=== PATIENT | male | born 1955 | race African-American/Black ===

== ENCOUNTER 2018-06-16 19:56 | Emergency (ER) | payer OTHER ==
[2018-06-16 20:31] LABS: Absolute Lymphocytes (CBC) 2.7 K/uL (0.7-4.9); Absolute Monocytes 0.5 K/uL (0.1-1.3); Absolute Neutrophil 1.9 K/uL (1.8-8.0); Eosinophils % 2.5 % (0-4.4); Hematocrit 38.5 % (39.6-49.0); Lymphocytes % 50.8 % (15.3-44.8); MCH 32.9 pg (27.0-35.0); MCV 98.6 fL (80-100); MPV 8.7 fL (7.6-11.3); Monocytes % 9.9 % (3.3-12.3); RBC Red Blood Cell Count 3.91 M/uL (4.33-5.43)
[2018-06-16] MEDS ORDERED: NA CHLORIDE 0.9% 1,000 ML ONE ×2 (20:35→21:54)
[2018-06-16 20:46] LABS: BUN Blood Urea Nitrogen 5 mg/dL (7-18); Bicarbonate 20 mmol/L (21-32); Glucose Level 396 mg/dL (74-106); Potassium 3.4 mmol/L (3.5-5.1); Sodium Level 137 mmol/L (136-145)
[2018-06-16 21:05] LABS: Blood Morphology Comment NOT SEEN (NOT SEEN); Platelet Estimate ADEQ
[2018-06-16 21:06] LABS: Platelets, Giant NOTED
[2018-06-16] MEDS ORDERED: INSULIN -REGULAR HUMAN 50 UNIT/0.5 ML ML ONE (21:54)
[2018-06-16 22:01] LABS: Urine Bacteria <20 /HPF (NONE SEEN); Urine Culture Reflex Order NOT NEEDED; Urine RBC <5 /HPF (NONE SEEN)
[2018-06-16 22:18] LABS: Urine Blood NEGATIVE (NEG); Urine Glucose 2+ (NEG); Urine Protein NEGATIVE (NEG); Urine Specific Gravity <1.005 (1.005-1.030)
[2018-06-17 00:11] LABS: BUN Blood Urea Nitrogen 5 mg/dL (7-18); Bicarbonate 22 mmol/L (21-32); Glucose Level 298 mg/dL (74-106); Potassium 3.5 mmol/L (3.5-5.1); Sodium Level 143 mmol/L (136-145)
--- NOTE | 2018-06-17 00:17 | ER ---
Nurse's Notes [facility] Name: Sky Leo Sr Age: 62 yrs Sex: Male : 1955 Arrival Date: 06/16/2018 Time: 20:04 Bed 5 Private MD: Diagnosis: Dehydration;Alcohol use, unspecified with intoxication;Hyperglycemia, unspecified Presentation: 06/16 20:00 Presenting complaint: EMS states: Called for patient with high blood sugar; states lp1 patient was eating dinner and became dizzy, new diagnosed Diabetes; Patient states having "a couple beers"; States continued dizziness on arrival to ED, gait steady. Transition of care: patient was not received from another setting of care. Onset of symptoms was June 16, 2018. Risk Assessment: Do you want to hurt yourself or someone else? Patient reports no desire to harm self or others. Initial Sepsis Screen: Does the patient meet any 2 criteria? No. Patient's initial sepsis screen is negative. Does the patient have a suspected source of infection? No. Patient's initial sepsis screen is negative. Care prior to arrival: Glucose check: 431. 20:00 Method Of Arrival: EMS: [facility] lp1 20:00 Acuity: DELFIN 3 lp1 Historical: - Allergies: 20:22 No Known Allergies; lp1 - Home Meds: 20:22 metformin 1,000 mg Oral tab 1 tab 2 times per day [Active]; cyclobenzaprine 10 mg Oral lp1 tab nightly [Active]; aspirin 81 mg Oral TbEC 1 tab once daily [Active]; lisinopril 2.5 mg Oral tab nightly [Active]; - PMHx: 20:22 Hypertension; sciatica; lp1 - PSHx: 20:22 None; lp1 - Immunization history:: Adult Immunizations up to date. - Social history:: Smoking status: Patient uses tobacco products, smokes one pack cigarettes per day. - Ebola Screening: : No symptoms or risks identified at this time. - Family history:: not pertinent. - Hospitalizations: : No recent hospitalization is reported. Screenin:24 Abuse screen: Denies threats or abuse. Denies injuries from another. Nutritional lp1 screening: No deficits noted. Tuberculosis screening: No symptoms or risk factors identified. 21:33 Fall Risk None identified. lp1 Assessment: 20:15 General: Appears in no apparent distress. Behavior is calm, cooperative, appropriate lp1 for age. Pain: Denies pain. Neuro: Level of Consciousness is awake, alert, obeys commands, Oriented to person, place, time, situation, Data Center Technician are equal bilaterally Moves all extremities. Full function Gait is steady, Speech is normal, Pupils are PERRLA, Reports dizziness. Cardiovascular: Patient's skin is warm and dry. Respiratory: Respiratory effort is even, unlabored. GI: Abdomen is flat. : No signs and/or symptoms were reported regarding the genitourinary system. EENT: No signs and/or symptoms were reported regarding the EENT system. Derm: Skin is intact, Skin is dry, Skin is normal. Musculoskeletal: Circulation, motion, and sensation intact. 21:50 Reassessment: second liter of NS started and regular insulin given. no complaints made. rr5 22:52 Reassessment: Patient appears in no apparent distress at this time. no complaints made. rr5 lying on bed on semi gómez's position Patient states feeling better. Patient states symptoms have improved. 06/17 00:24 Reassessment: Patient and/or family updated on plan of care and expected duration. Pain bb level reassessed. Patient is alert, oriented x 3, equal unlabored respirations, skin warm/dry/pink. pt verbalized understanding of and agrees to plan of care discharge instructions given. Vital Signs: 06/16 20:00 BP 150 / 83; Pulse 89; Resp 18; Temp 97.6(O); Pulse Ox 99% on R/A; Weight 52.16 kg; lp1 Height 5 ft. 6 in. (167.64 cm); Pain 0/10; 20:45 BP 146 / 87; Pulse 89; Resp 17; Pulse Ox 99% on R/A; lp1 21:30 BP 136 / 82; Pulse 82; Resp 13; Pulse Ox 99% on R/A; Pain 0/10; rr5 22:15 BP 125 / 60; Pulse 84; Resp 15; Pulse Ox 98% ; Pain 0/10; rr5 23:00 BP 136 / 74; Pulse 85; Resp 17; Pulse Ox 99% on R/A; rr5 23:54 BP 126 / 65; Pulse 83; Resp 15; Pulse Ox 98% on R/A; rr5 06/17 00:22 BP 121 / 61; Pulse 84; Resp 16 S; Temp 97.7(O); Pulse Ox 99% on R/A; bb 06/16 20:00 Body Mass Index 18.56 (52.16 kg, 167.64 cm) lp1 ED Course: 06/16 20:04 Patient arrived in ED. rn 20:04 Ralph Barkley MD is Attending Physician. rn 20:10 Inserted saline lock: 20 gauge in right forearm, using aseptic technique. Blood lp1 collected. 20:20 Triage completed. lp1 20:22 Arm band placed on right wrist. lp1 20:49 EKG done, by ED staff, reviewed by Ralph Barkley MD. lp1 21:00 Patient has correct armband on for positive identification. Placed in gown. Bed in low lp1 position. Call light in reach. electronic device monitor on. Pulse ox on. NIBP on. 21:41 Kelly Carrillo RN is Primary Nurse. lp1 23:53 Awaiting lab results. rr5 06/17 00:23 No provider procedures requiring assistance completed. IV discontinued, intact, bb bleeding controlled, No redness/swelling at site. Pressure dressing applied. Administered Medications: 06/16 20:40 Drug: NS 0.9% 1000 ml Route: IV; Rate: 1000 ml; Site: right forearm; lp1 21:40 Follow up: IV Status: Completed infusion; IV Intake: 1000ml bb 21:50 Drug: Insulin Regular Human 5 units {Co-Signature: lp1 (Kelly Carrillo RN).} {Note: CBG rr5 341mg/dl.} Route: Sub-Q; Site: right upper arm; 06/17 00:24 Follow up: Response: Blood sugar is lowered bb 06/16 21:50 Drug: NS 0.9% 1000 ml Route: IV; Rate: 1000 ml; Site: right forearm; rr5 22:50 Follow up: IV Status: Completed infusion; IV Intake: 1000ml bb Point of Care Testing: Blood Glucose: 20:13 Blood Glucose: 368 mg/dL; lp1 21:41 Blood Glucose: 341 mg/dL; lp1 22:52 Blood Glucose: 292 mg/dL; rr5 22:52 dr. barkley aware rr5 Ranges: Intake: 21:40 IV: 1000ml; Total: 1000ml. bb 22:50 IV: 1000ml; Total: 2000ml. bb Outcome: 06/17 00:15 Discharge ordered by . rn 00:24 Condition: stable bb 00:24 Instructed on discharge instructions, follow up and referral plans. Demonstrated understanding of instructions, follow-up care. 00:49 Discharged to home ambulatory. bb 00:52 Patient left the ED. bb Signatures: Gabriela Hargrove RN RN bb Ralph Barkley MD MD rn Pena, Laura, RN RN lp1 Felix Shelton RN RN rr5 Kelly Carrillo RN lp1
--- NOTE | 2018-06-17 00:17 | EDPHYS ---
Physician Documentation [facility] Name: Sky Leo Sr Age: 62 yrs Sex: Male : 1955 Arrival Date: 06/16/2018 Time: 20:04 Bed 5 Private MD: ED Physician Ralph Barkley HPI: 06/16 20:58 This 62 yrs old Black Male presents to ER via EMS with complaints of High Blood Sugar. rn 20:58 The patient or guardian reports hyperglycemia. Onset: The symptoms/episode rn began/occurred at an unknown time. Associated signs and symptoms: Pertinent positives:. 20:59 Current symptoms: In the emergency department the patient's symptoms are unchanged from rn the initial presentation. The patient has experienced similar episodes in the past. REports high blood sugar, reports somewhat recently diagnosed with diabetes, on metformin for about a month, reports feeling lightheaded today, has been eating "a lot of sweets and beer", no syncope, no chest pain/vomiting/abd pain/diarrhea. Drinking today as well. . Historical: - Allergies: 20:22 No Known Allergies; lp1 - Home Meds: 20:22 metformin 1,000 mg Oral tab 1 tab 2 times per day [Active]; cyclobenzaprine 10 mg Oral lp1 tab nightly [Active]; aspirin 81 mg Oral TbEC 1 tab once daily [Active]; lisinopril 2.5 mg Oral tab nightly [Active]; - PMHx: 20:22 Hypertension; sciatica; lp1 - PSHx: 20:22 None; lp1 - Immunization history:: Adult Immunizations up to date. - Social history:: Smoking status: Patient uses tobacco products, smokes one pack cigarettes per day. - Ebola Screening: : No symptoms or risks identified at this time. - Family history:: not pertinent. - Hospitalizations: : No recent hospitalization is reported. ROS: 20:59 Constitutional: Negative for fever, chills, and weight loss, Eyes: Negative for injury, rn pain, redness, and discharge, Neck: Negative for injury, pain, and swelling, Cardiovascular: Negative for chest pain, palpitations, and edema, Respiratory: Negative for shortness of breath, cough, wheezing, and pleuritic chest pain, Abdomen/GI: Negative for abdominal pain, nausea, vomiting, diarrhea, and constipation, Back: Negative for injury and pain, MS/Extremity: Negative for injury and deformity, Skin: Negative for injury, rash, and discoloration, Neuro: Negative for headache, numbness, tingling, and seizure. Exam: 20:59 Constitutional: Thin male, no acute distress, smiling, legs crossed Head/Face: rn Normocephalic, atraumatic. ENT: dry MM Cardiovascular: Regular rate and rhythm with a normal S1 and S2. No gallops, murmurs, or rubs. Normal PMI, no JVD. No pulse deficits. Respiratory: Lungs have equal breath sounds bilaterally, clear to auscultation and percussion. No rales, rhonchi or wheezes noted. No increased work of breathing, no retractions or nasal flaring. Abdomen/GI: soft, non-tender Skin: Warm, dry, and no evidence of cellulitis. MS/ Extremity: Pulses equal, no cyanosis. Neurovascular intact. Full, normal range of motion. Equal circumference. Neuro: Awake and alert, GCS 15, oriented to person, place, time, and situation. Cranial nerves II-XII grossly intact. Motor strength 5/5 in all extremities. Sensory grossly intact. Cerebellar exam normal. Vital Signs: 20:00 BP 150 / 83; Pulse 89; Resp 18; Temp 97.6(O); Pulse Ox 99% on R/A; Weight 52.16 kg; lp1 Height 5 ft. 6 in. (167.64 cm); Pain 0/10; 20:45 BP 146 / 87; Pulse 89; Resp 17; Pulse Ox 99% on R/A; lp1 21:30 BP 136 / 82; Pulse 82; Resp 13; Pulse Ox 99% on R/A; Pain 0/10; rr5 22:15 BP 125 / 60; Pulse 84; Resp 15; Pulse Ox 98% ; Pain 0/10; rr5 23:00 BP 136 / 74; Pulse 85; Resp 17; Pulse Ox 99% on R/A; rr5 23:54 BP 126 / 65; Pulse 83; Resp 15; Pulse Ox 98% on R/A; rr5 06/17 00:22 BP 121 / 61; Pulse 84; Resp 16 S; Temp 97.7(O); Pulse Ox 99% on R/A; bb 06/16 20:00 Body Mass Index 18.56 (52.16 kg, 167.64 cm) lp1 MDM: 06/16 20:04 Patient medically screened. rn 06/17 00:14 Differential diagnosis: hyperglycemia, dehydration, ETOH intoxication. Data reviewed: rn vital signs, nurses notes, lab test result(s), EKG, and as a result, I will discharge patient. Counseling: I had a detailed discussion with the patient and/or guardian regarding: the historical points, exam findings, and any diagnostic results supporting the discharge/admit diagnosis, lab results, the need for outpatient follow up, to return to the emergency department if symptoms worsen or persist or if there are any questions or concerns that arise at home. Response to treatment: the patient's symptoms have markedly improved after treatment, and as a result, I will discharge patient. Special discussion: I discussed with the patient/guardian in detail that at this point there is no indication for admission to the hospital. It is understood, however, that if the symptoms persist or worsen the patient needs to return immediately for re-evaluation. ED course: Patient improved, hyperglycemic but after eating and drinking beer, + dehydration likely due to both, improved with fluids and insulin, no AG, no ketones, given 2 L of fluid with improvement of BMP, will dc home in care of family. . 06/16 20:05 Order name: CBC with Diff; Complete Time: 21: rn 06/16 20:05 Order name: Basic Metabolic Panel; Complete Time: 21: rn 06/16 20:05 Order name: Urine Microscopic Only; Complete Time: 22:28 rn 06/16 20:05 Order name: Ketone, Serum; Complete Time: 21:29 rn 06/16 20:05 Order name: ETOH Level; Complete Time: 21: rn 06/16 20:43 Order name: Manual Differential; Complete Time: 21:29 EDMS 06/16 20:05 Order name: Glucose Level; Complete Time: 20:24 rn 06/16 20:05 Order name: EKG - Nurse/Tech; Complete Time: 20:50 rn 06/16 20:05 Order name: IV Start; Complete Time: 20:24 rn 06/16 21:34 Order name: Urine Dipstick--Ancillary (enter results); Complete Time: 22:28 ms 06/16 22:50 Order name: BMP; Complete Time: 00:13 rn 06/16 20:05 Order name: Urine Dipstick-Ancillary (obtain specimen); Complete Time: 21:34 rn 06/16 22:50 Order name: Accucheck; Complete Time: 22:51 rn Administered Medications: 06/16 20:40 Drug: NS 0.9% 1000 ml Route: IV; Rate: 1000 ml; Site: right forearm; lp1 21:40 Follow up: IV Status: Completed infusion; IV Intake: 1000ml bb 21:50 Drug: Insulin Regular Human 5 units {Co-Signature: jonas (Kelly Carrillo RN).} {Note: CBG rr5 341mg/dl.} Route: Sub-Q; Site: right upper arm; 06/17 00:24 Follow up: Response: Blood sugar is lowered bb 06/16 21:50 Drug: NS 0.9% 1000 ml Route: IV; Rate: 1000 ml; Site: right forearm; rr5 22:50 Follow up: IV Status: Completed infusion; IV Intake: 1000ml bb Point of Care Testing: Blood Glucose: 20:13 Blood Glucose: 368 mg/dL; lp1 21:41 Blood Glucose: 341 mg/dL; lp1 22:52 Blood Glucose: 292 mg/dL; rr5 22:52 dr. barkley aware rr5 Ranges: Critical Glucose Levels:Adult <50 mg/dl or >400 mg/dl <40 mg/dl or >180 mg/dl Disposition: 06/17/18 00:15 Discharged to Home. Impression: Dehydration, Alcohol use, unspecified with intoxication, Hyperglycemia, unspecified. - Condition is Stable. - Discharge Instructions: Alcohol Intoxication, Dehydration, Adult, Hyperglycemia. - Medication Reconciliation Form, Thank You Letter, Antibiotic Education, Prescription Opioid Use form. - Follow up: Private Physician; When: As needed; Reason: Recheck today's complaints, Re-evaluation by your physician. - Problem is new. - Symptoms have improved. Signatures: Dispatcher [employer] Gabriela García RN Ralph Tilley MD MD rn Pena, Laura, RN RN lp1 Felix Shelton RN RN rr5 Kelly Carrillo RN lp1 Corrections: (The following items were deleted from the chart) 06/17 00:52 00:15 06/17/2018 00:15 Discharged to Home. Impression: Dehydration; Alcohol use, bb unspecified with intoxication; Hyperglycemia, unspecified. Condition is Stable. Forms are Medication Reconciliation Form, Thank You Letter, Antibiotic Education, Prescription Opioid Use. Follow up: Private Physician; When: As needed; Reason: Recheck today's complaints, Re-evaluation by your physician. Problem is new. Symptoms have improved. rn
--- NOTE | 2018-06-18 06:11 | EKG ---
Test Date: 2018-06-16 Test Time: 20:45:45 Shaft Mechanic: DANIE MEASUREMENT RESULTS: Intervals: Rate: 87 DC: 154 QRSD: 140 QT: 428 QTc: 515 [place]: P: 65 DC: 154 QRS: -60 T: 42 INTERPRETIVE STATEMENTS: Normal sinus rhythm Right bundle branch block Left anterior fascicular block Bifascicular block Abnormal ECG No previous ECG available for comparison Electronically Signed On 06-18-18 06:11:14 PUBLIC HEALTH SPECIALIST by Madan Metzger
== END 2018-06-17 00:52 | disposition home or self-care (01) ==
LOC: ER 19:56
DX: E86.0 Dehydration (principal); E11.65 Type 2 diabetes mellitus with hyperglycemia; Z72.89 Other problems related to lifestyle; I45.2 Bifascicular block; R94.31 Abnormal electrocardiogram [ECG] [EKG]; I10 Essential (primary) hypertension; F17.210 Nicotine dependence, cigarettes, uncomplicated; Z79.84 Long term (current) use of oral hypoglycemic drugs; Z79.82 Long term (current) use of aspirin; Z79.899 Other long term (current) drug therapy
CPT/HCPCS: 36415; 80048; 80320; 81003; 81015; 82010; 82962; 85025; 93005; 96360; 96361; 96372; 99285; J7030

== ENCOUNTER 2019-12-13 16:40 | Inpatient (IN) | payer OTHER ==
--- NOTE | 2019-12-13 17:34 | RAD REPORT ---
EXAM DESCRIPTION: Susy Single View12/13/2019 5:17 pm CLINICAL HISTORY: fever COMPARISON: none FINDINGS: The lungs appear clear of acute infiltrate. The heart is normal size IMPRESSION: No acute abnormalities displayed
[2019-12-13] MEDS ORDERED: ONDANSETRON 4 MG/2 ML VIAL ONE (17:38)
[2019-12-13] MEDS ORDERED: NA CHLORIDE 0.9% 3,000 ML ONE (17:38)
[2019-12-13] MEDS ORDERED: IBUPROFEN 400 MG TAB ONE (17:38)
[2019-12-13 17:50] LABS: Absolute Lymphocytes (CBC) 0.8 K/uL (0.7-4.9); Basophils % 0.8 % (0-1.3); Hematocrit 26.3 % (39.6-49.0); Lymphocytes % 7.3 % (15.3-44.8); MPV 8.5 fL (7.6-11.3); RBC Red Blood Cell Count 2.99 M/uL (4.33-5.43)
[2019-12-13] MEDS ORDERED: CEFEPIME/SWI 2gm 2 GM/20 ML SYR IVP ONE (18:00)
[2019-12-13 18:08] LABS: Protime INR 1.19
[2019-12-13 18:11] LABS: ALT/SGPT 39 U/L (12-78); AST/SGOT 57 U/L (15-37); Albumin 2.1 g/dL (3.4-5.0); Alkaline Phosphatase 116 U/L (45-117); Amylase 80 U/L (25-115); BUN Blood Urea Nitrogen 23 mg/dL (7-18); Bicarbonate 23 mmol/L (21-32); Bilirubin Direct 0.2 mg/dL (0-0.2); Bilirubin Total 0.4 mg/dL (0.2-1.0); CKMB Creatine Kinase MB < 1.0 ng/mL (0.3-3.6); Creatine Phosphokinase 61 U/L (39-308); Glucose Level 162 mg/dL (74-106); Lipase 271 U/L (73-393); Potassium 3.9 mmol/L (3.5-5.1); Protein, Total 8.8 g/dL (6.4-8.2); Sodium Level 138 mmol/L (136-145); Troponin (Emerg Dept Use Only) < 0.02 ng/mL (0.0-0.045)
--- NOTE | 2019-12-13 19:09 | RAD REPORT ---
EXAM DESCRIPTION: CT - Abdomen Pelvis W Contrast - 12/13/2019 6:50 pm CLINICAL HISTORY: Abdominal pain COMPARISON: none. TECHNIQUE: Computed axial tomography of the abdomen pelvis was obtained. 100 cc Isovue-300 was admin istered intravenously. Oral contrast was not given limiting evaluation of bowel and appendix All CT scans are performed using dose optimization technique as appropriate and may include automated exposure control or mA/KV adjustment according to patient size. FINDINGS: The liver, spleen, pancreas, and adrenals appear unremarkable. 3 centimeter left renal cyst. Tiny nonobstructing left renal calculus. Tiny right renal cysts. Atherosclerotic disease There is no evidence of diverticulitis. An abnormal appendix is not seen. IMPRESSION: No acute abnormality is displayed.
--- NOTE | 2019-12-13 19:49 | ER ---
Nurse's Notes [facility] Name: Sky Leo Sr Age: 64 yrs Sex: Male : 1955 Arrival Date: 12/13/2019 Time: 16:43 Bed 2 Private MD: Diagnosis: Severe sepsis;Urinary tract infection, site not specified Presentation: 12/12 16:32 Chief complaint: EMS states: Pt. c/o fever, nausea, and vomiting that started today. rb1 Had a previous stroke on November 07, 2019 with right sided deficits. Temperature was checked twice by EMS, 1st temp 100.5, the 2nd temp 102.5, Tylenol x 2 was given at 1545, BGL 170, BP 123/95, P 100's, 100% RA. History of hypertension, Prostate Cancer, Urinary Incontinence. Pt. is from home. Onset of symptoms was December 13, 2019. 16:32 Method Of Arrival: EMS: [facility] 16:32 Acuity: DELFIN 3 rb1 16:32 Coronavirus screen: Patient denies a cough. Patient denies shortness of breath or rb1 difficulty breathing. Patient reports a measured and/or subjective temperature greater than 100.4F. Patient denies travel on a cruise ship or to a country the [facility] currently lists as an affected area. Patient denies contact with known and/or suspected case of COVID-19. Ebola Screen: Patient denies travel to an Ebola-affected area in the 21 days before illness onset. Initial Sepsis Screen: Does the patient meet any 2 criteria? No. Patient's initial sepsis screen is negative. Risk Assessment: Do you want to hurt yourself or someone else? Patient reports no desire to harm self or others. 19:45 Initial Sepsis Screen: Does the patient meet any 2 criteria? Does the patient have a mg2 suspected source of infection? Yes: Dysuria/Frequency/Urgency/UTI. Triage Assessment: 16:43 General: Appears in no apparent distress. comfortable, Behavior is calm, cooperative, rb1 Reports fever for. Pain: Denies pain. Neuro: Level of Consciousness is awake, alert, obeys commands, Oriented to person, place, time, situation. Cardiovascular: Capillary refill < 3 seconds. Respiratory: Airway is patent Respiratory effort is even, unlabored, Respiratory pattern is regular, symmetrical, Denies cough, shortness of breath. GI: Reports diarrhea, nausea, vomiting, since this morning. : Reports incontinence. Derm: Skin is dry, Skin is normal, Skin temperature is warm. Musculoskeletal: Range of motion: right side deficit due to previous stroke. Historical: - Allergies: 19:45 No Known Allergies; mg2 - Home Meds: 16:43 Colace 50 mg oral cap 1 cap once daily [Active]; aspirin 81 mg Oral TbEC 1 tab once rb1 daily [Active]; atorvastatin 10 mg oral tab 1 tab once daily [Active]; baclofen 10 mg Oral tab 1 tab 3 times per day [Active]; cholecalciferol (vitamin D3) 2,000 unit oral cap daily [Active]; clopidogrel 75 mg oral tab 1 tab once daily [Active]; lisinopril 2.5 mg Oral tab 1 tab nightly [Active]; metformin 500 mg oral tab 2 times per day [Active]; mirtazapine 7.5 mg Oral tab 1 tabs once daily [Active]; senna 8.6 mg oral cap 1 caps once daily [Active]; 19:45 cyclobenzaprine 10 mg Oral tab nightly [Active]; mg2 21:41 benazepril oral 2.5 oral 1 tab nightly [Active]; sg - PMHx: 16:43 Hypertension; sciatica; CVA; Prostate Cancer; rb1 - Immunization history:: Adult Immunizations up to date. - Social history:: Smoking status: Patient/guardian denies using. Screenin:32 Abuse screen: Denies threats or abuse. Nutritional screening: No deficits noted. rb1 Tuberculosis screening: No symptoms or risk factors identified. Fall Risk No fall in past 12 months (0 pts). Secondary diagnosis (15 points) impaired mobility, CVA, IV access (20 points). Ambulatory Aid- None/Bed Rest/Nurse Assist (0 pts). Gait- Impaired (20 pts.). Mental Status- Oriented to own ability (0 pts). Total Keating Fall Scale indicates High Risk Score (45 or more points). Fall prevention measures have been instituted. Side Rails Up X 2 Placed Close to Nursing Station 1:1 Attendant Assigned Frequent Obs/Assessments Occuring As available patient and family educated on Fall Prevention Program and Strategies. Assessment: 16:32 General: See triage assessment. GI: Reports diarrhea, nausea, vomiting, since this rb1 morning. 17:30 Reassessment: Patient appears in no apparent distress at this time. Patient and/or rb1 family updated on plan of care and expected duration. Pain level reassessed. Patient is alert, oriented x 3, equal unlabored respirations, skin warm/dry/pink. Patient denies pain at this time. 18:30 Reassessment: Patient appears in no apparent distress at this time. No changes from rb1 previously documented assessment. 18:38 Reassessment: Pt. went to CT. rb1 19:35 General: Appears in no apparent distress. comfortable, Behavior is calm, cooperative. mg2 Pain: Denies pain. Neuro: Level of Consciousness is awake, alert, obeys commands, Oriented to person, place, time, situation. Cardiovascular: Capillary refill < 3 seconds Patient's skin is warm and dry. Respiratory: Airway is patent Respiratory effort is even, unlabored, Respiratory pattern is regular, symmetrical. : Urine is see urine dip. EENT: No signs and/or symptoms were reported regarding the EENT system. Derm: Skin is intact, is healthy with good turgor, Skin is pink, warm \T\ dry. normal. Musculoskeletal: Capillary refill weakness in the right side. 19:45 Reassessment: Alyssa Leo- [phone]. mg2 20:23 Reassessment: Patient appears in no apparent distress at this time. Patient and/or mg2 family updated on plan of care and expected duration. Pain level reassessed. Patient is alert, oriented x 3, equal unlabored respirations, skin warm/dry/pink. 22:42 Reassessment: pt updated POC, given access code by registration for admission to room 414. Vital Signs: 17:00 BP 121 / 75; Pulse 68; Resp 17; Temp 101.7; Pulse Ox 97% ; Weight 54.43 kg (R); Height rb1 5 ft. 8 in. (172.72 cm) (R); Pain 0/10; 17:23 Weight 54.43 kg; bp 17:30 BP 120 / 69; Pulse 87; Resp 16; Pulse Ox 99% ; Pain 0/10; rb1 18:30 BP 102 / 53; Pulse 89; Resp 17; Pulse Ox 98% on R/A; rb1 19:34 BP 117 / 65; Pulse 75; Resp 18; Temp 98.8(O); Pulse Ox 98% on R/A; Pain 0/10; mg2 20:23 BP 131 / 66; Pulse 72; Resp 18; Pulse Ox 97% on R/A; mg2 21:30 BP 121 / 65; Pulse 71; Resp 18; Temp 98.1; Pulse Ox 100% on R/A; mg2 17:00 Body Mass Index 18.25 (54.43 kg, 172.72 cm) rb1 ED Course: 16:32 Patient has correct armband on for positive identification. Bed in low position. Call rb1 light in reach. Side rails up X2. monitor car operator on. Pulse ox on. NIBP on. Warm blanket given. 16:43 Patient arrived in ED. rb1 16:43 Sonny Leone MD is Attending Physician. kdr 16:43 Arm band placed on right wrist. rb1 16:48 Triage completed. rb1 16:52 Librado Narayanan PA is PHCP. jr8 17:10 Inserted saline lock: 22 gauge in left forearm, using aseptic technique. Blood rb1 collected. 17:18 Chest Single View XRAY In Process Unspecified. EDMS 17:53 Brenna Mcpherson, RN is Primary Nurse. rb1 18:50 CT Abd/Pelvis - IV Contrast Only In Process Unspecified. EDMS 19:45 No provider procedures requiring assistance completed. mg2 19:48 Jose Sherwood MD is Hospitalizing Provider. jr8 21:05 Primary Nurse role handed off by Brenna Mcpherson, RN mw2 22:33 Patient admitted, IV remains in place. mg2 Administered Medications: 17:38 Drug: Zofran (Ondansetron) 4 mg Route: IVP; Site: left forearm; rb1 19:30 Follow up: Response: No adverse reaction mg2 17:38 Drug: Ibuprofen 400 mg Route: PO; rb1 19:30 Follow up: Response: No adverse reaction; Temperature is decreased mg2 17:38 Drug: NS 0.9% (30 ml/kg) 30 ml/kg Route: IV; Rate: bolus; Site: left forearm; rb1 21:00 Follow up: Response: No adverse reaction; IV Status: Completed infusion mg2 17:50 Drug: Cefepime 2 grams Route: IVPB; Rate: 200 ml/hr; Infused Over: 30 mins; Site: left rb1 forearm; 19:00 Follow up: Response: No adverse reaction; IV Status: Completed infusion mg2 19:34 Not Given (Physician Discretion): NS 0.9% 1000 ml IV at 1000 ml once mg2 Outcome: 19:48 Decision to Hospitalize by Provider. [place] 21:14 Admitted to Tele accompanied by tech, via stretcher, room 414, with chart, Report mg2 called to MARTHA Burgos 21:14 Condition: stable 21:14 Instructed on the need for admit, Demonstrated understanding of instructions. 22:35 Patient left the ED. mg2 Signatures: Dispatcher [employer] EDMS Henry Man, MARTHA RN sg Sonny Leone MD MD kdr Librado Narayanan PA PA jr8 Brenna Mcpherson RN RN rb1 Tray Alcantar RN RN Martha Garland 2 Gideon Breaux RN RN mg2 Corrections: (The following items were deleted from the chart) 17:57 16:32 Fall Risk None identified. rb1 rb1
--- NOTE | 2019-12-13 19:50 | EDPHYS ---
Physician Documentation [facility] Name: Sky Leo Sr Age: 64 yrs Sex: Male : 1955 Arrival Date: 12/13/2019 Time: 16:43 Bed 2 Private MD: ED Physician Sonny Leone HPI: 12/12 17:20 This 64 yrs old Black Male presents to ER via EMS with complaints of Fever, jr8 Nausea/Vomiting. 17:20 The patient reports fever, with an emergency department temperature of 101 degrees jr8 Fahrenheit. Onset: The symptoms/episode began/occurred acutely, today. Modifying factors: there are no obvious modifying factors. Associated signs and symptoms: Pertinent positives: nausea, vomiting. Severity of symptoms: At their worst the symptoms were moderate in the emergency department the symptoms are unchanged. The patient has not experienced similar symptoms in the past. The patient has not recently seen a physician. Patient with sudden onset fevers with vomiting. Currently denies any other symptoms at this time. History of CVA affecting right side of body and has intermittent incontinence . Historical: - Allergies: 19:45 No Known Allergies; mg2 - Home Meds: 16:43 Colace 50 mg oral cap 1 cap once daily [Active]; aspirin 81 mg Oral TbEC 1 tab once rb1 daily [Active]; atorvastatin 10 mg oral tab 1 tab once daily [Active]; baclofen 10 mg Oral tab 1 tab 3 times per day [Active]; cholecalciferol (vitamin D3) 2,000 unit oral cap daily [Active]; clopidogrel 75 mg oral tab 1 tab once daily [Active]; lisinopril 2.5 mg Oral tab 1 tab nightly [Active]; metformin 500 mg oral tab 2 times per day [Active]; mirtazapine 7.5 mg Oral tab 1 tabs once daily [Active]; senna 8.6 mg oral cap 1 caps once daily [Active]; 19:45 cyclobenzaprine 10 mg Oral tab nightly [Active]; mg2 21:41 benazepril oral 2.5 oral 1 tab nightly [Active]; sg - PMHx: 16:43 Hypertension; sciatica; CVA; Prostate Cancer; rb1 - Immunization history:: Adult Immunizations up to date. - Social history:: Smoking status: Patient/guardian denies using. ROS: 17:39 Eyes: Negative for injury, pain, redness, and discharge, ENT: Negative for injury, jr8 pain, and discharge, Neck: Negative for injury, pain, and swelling, Cardiovascular: Negative for chest pain, palpitations, and edema, Respiratory: Negative for shortness of breath, cough, wheezing, and pleuritic chest pain, Back: Negative for injury and pain, MS/Extremity: Negative for injury and deformity, Skin: Negative for injury, rash, and discoloration, Neuro: Negative for headache, weakness, numbness, tingling, and seizure. 17:39 Constitutional: Positive for fever. 17:39 Abdomen/GI: Positive for nausea, vomiting, and diarrhea, Negative for abdominal pain, constipation, abdominal cramps, abdominal distension, hematemesis, black/tarry stool, rectal pain, rectal bleeding, bowel incontinence, flatulence. Exam: 17:39 Eyes: Pupils equal round and reactive to light, extra-ocular motions intact. Lids and jr8 lashes normal. Conjunctiva and sclera are non-icteric and not injected. Cornea within normal limits. Periorbital areas with no swelling, redness, or edema. ENT: Nares patent. No nasal discharge, no septal abnormalities noted. Tympanic membranes are normal and external auditory canals are clear. Oropharynx with no redness, swelling, or masses, exudates, or evidence of obstruction, uvula midline. Mucous membranes moist. Neck: Trachea midline, no thyromegaly or masses palpated, and no cervical lymphadenopathy. Supple, full range of motion without nuchal rigidity, or vertebral point tenderness. No Meningismus. Respiratory: Lungs have equal breath sounds bilaterally, clear to auscultation and percussion. No rales, rhonchi or wheezes noted. No increased work of breathing, no retractions or nasal flaring. Back: No spinal tenderness. No costovertebral tenderness. Full range of motion. Skin: Warm, dry with normal turgor. Normal color with no rashes, no lesions, and no evidence of cellulitis. MS/ Extremity: Pulses equal, no cyanosis. Neurovascular intact. Neuro: Awake and alert, GCS 15, oriented to person, place, time, and situation. Cranial nerves II-XII grossly intact. Motor strength shows right sided weakness present from previous stroke. Sensory grossly intact. 17:39 Cardiovascular: Rate: normal, Rhythm: regular, Pulses: Pulses are 2+ in right radial artery and left radial artery. Heart sounds: normal, Edema: is not appreciated, JVD: is not appreciated. 17:39 Abdomen/GI: Inspection: abdomen appears normal, Bowel sounds: active, all quadrants, Palpation: soft, in all quadrants, nontender, in all quadrants, Indicators: McBurney's point is not tender, Ferrera's sign is negative, Rovsing's sign is negative, Liver: tenderness, is not appreciated. Vital Signs: 17:00 BP 121 / 75; Pulse 68; Resp 17; Temp 101.7; Pulse Ox 97% ; Weight 54.43 kg (R); Height rb1 5 ft. 8 in. (172.72 cm) (R); Pain 0/10; 17:23 Weight 54.43 kg; bp 17:30 BP 120 / 69; Pulse 87; Resp 16; Pulse Ox 99% ; Pain 0/10; rb1 18:30 BP 102 / 53; Pulse 89; Resp 17; Pulse Ox 98% on R/A; rb1 19:34 BP 117 / 65; Pulse 75; Resp 18; Temp 98.8(O); Pulse Ox 98% on R/A; Pain 0/10; mg2 20:23 BP 131 / 66; Pulse 72; Resp 18; Pulse Ox 97% on R/A; mg2 21:30 BP 121 / 65; Pulse 71; Resp 18; Temp 98.1; Pulse Ox 100% on R/A; mg2 17:00 Body Mass Index 18.25 (54.43 kg, 172.72 cm) rb1 MDM: 16:52 Patient medically screened. jr8 19:48 Data reviewed: vital signs, nurses notes, lab test result(s), radiologic studies, CT jr8 scan. Data interpreted: Pulse oximetry: on room air is 98 %. Interpretation: normal. Counseling: I had a detailed discussion with the patient and/or guardian regarding: the historical points, exam findings, and any diagnostic results supporting the discharge/admit diagnosis, lab results, radiology results, the need for further work-up and treatment in the hospital. 12/12 16:44 Order name: Amylase, Serum; Complete Time: 18:12 kdr 12/12 16:44 Order name: Basic Metabolic Panel; Complete Time: 18:12 kdr 12/12 16:44 Order name: Blood Culture Adult (2) kdr 12/12 16:44 Order name: CBC with Diff; Complete Time: 18:01 kdr 12/12 16:44 Order name: Ckmb; Complete Time: 18:12 kdr 12/12 16:44 Order name: CPK; Complete Time: 18:13 kdr 12/12 16:44 Order name: Lactate; Complete Time: 18:23 kdr 12/12 16:44 Order name: LFT's; Complete Time: 18:12 kdr 12/12 16:44 Order name: Lipase; Complete Time: 18:13 kdr 12/12 16:44 Order name: Procalcitonin; Complete Time: 19:02 kdr 12/12 16:44 Order name: Protime (+inr); Complete Time: 18:10 kdr 12/12 16:44 Order name: Ptt, Activated; Complete Time: 18:10 kdr 12/12 16:44 Order name: Troponin (emerg Dept Use Only); Complete Time: 18:13 kdr 12/12 16:44 Order name: Urine Microscopic Only; Complete Time: 20:14 kdr 12/12 16:44 Order name: Chest Single View XRAY; Complete Time: 17:42 kdr 12/12 17:24 Order name: Flu; Complete Time: 19:47 bp 12/12 17:24 Order name: COVID-19; Complete Time: 20:14 bp 12/12 18:13 Order name: CT Abd/Pelvis - IV Contrast Only; Complete Time: 19:17 jr8 12/12 19:35 Order name: Urine Dipstick--Ancillary (enter results); Complete Time: 20:14 mw2 12/12 20:14 Order name: Urine Culture EDCT 12/12 20:24 Order name: CONS Pharmacy Consult EDCT 12/12 20:24 Order name: CBC with Automated Diff EDCT 12/12 20:24 Order name: CBC with Automated Diff EDMS 12/12 20:24 Order name: Comprehensive Metabolic Panel [facility] 12/12 20:24 Order name: Comprehensive Metabolic Panel [facility] 12/12 16:44 Order name: Accucheck; Complete Time: 19:05 kdr 12/12 16:44 Order name: Cardiac monitoring; Complete Time: 19:05 kdr 12/12 16:44 Order name: EKG - Nurse/Tech; Complete Time: 19:34 kdr 12/12 16:44 Order name: IV Saline Lock - Large Bore; Complete Time: 18:03 kdr 12/12 16:44 Order name: Labs collected and sent; Complete Time: 18:03 kdr 12/12 16:44 Order name: O2 Per Protocol; Complete Time: 18:04 kdr 12/12 16:44 Order name: O2 Sat Monitoring; Complete Time: 18:04 kdr 12/12 16:44 Order name: Urine Dipstick-Ancillary (obtain specimen); Complete Time: 19:34 kdr 12/12 17:39 Order name: Labs - recollect needed: lactic timed out.; Complete Time: 18:01 tt3 12/12 20:24 Order name: Heart Healthy EDMS Administered Medications: 17:38 Drug: Zofran (Ondansetron) 4 mg Route: IVP; Site: left forearm; rb1 19:30 Follow up: Response: No adverse reaction mg2 17:38 Drug: Ibuprofen 400 mg Route: PO; rb1 19:30 Follow up: Response: No adverse reaction; Temperature is decreased mg2 17:38 Drug: NS 0.9% (30 ml/kg) 30 ml/kg Route: IV; Rate: bolus; Site: left forearm; rb1 21:00 Follow up: Response: No adverse reaction; IV Status: Completed infusion mg2 17:50 Drug: Cefepime 2 grams Route: IVPB; Rate: 200 ml/hr; Infused Over: 30 mins; Site: left rb1 forearm; 19:00 Follow up: Response: No adverse reaction; IV Status: Completed infusion mg2 19:34 Not Given (Physician Discretion): NS 0.9% 1000 ml IV at 1000 ml once mg2 Disposition: 12/13 12:33 Co-signature as Attending Physician, Sonny Leone MD I agree with the assessment and kdr plan of care. Disposition: 12/13/19 19:48 Hospitalization ordered by Jose Sherwood for Inpatient Admission. Preliminary diagnosis are Severe sepsis, Urinary tract infection, site not specified. - Bed requested for Telemetry/MedSurg (Inpatient). - Status is Inpatient Admission. mg2 - Condition is Stable. - Problem is new. - Symptoms have improved. Signatures: Dispatcher [facility] Zuleyka Sotelo RN RN Henry Man RN RN sg Rittger, Kevin, MD MD [facility] Librado Narayanan PA PA [facility] Brenna Mcpherson, RN RN rb1 Gideon Breaux, RN RN mg2 Dionisio, Axel tt3 Corrections: (The following items were deleted from the chart) 12/12 19:34 18:05 Pelletier ordered. rb1 mg2 20:48 19:48 Hospitalization Ordered by Jose Sherwood MD for Inpatient Admission. Preliminary mw diagnosis is Severe sepsis; Urinary tract infection, site not specified. Bed requested for Telemetry/MedSurg (Inpatient). Status is Inpatient Admission. Condition is Stable. Problem is new. Symptoms have improved. jr8 22:35 20:48 12/13/2019 19:48 Hospitalization Ordered by Jose Sherwood MD for Inpatient mg2 Admission. Preliminary diagnosis is Severe sepsis; Urinary tract infection, site not specified. Bed requested for Telemetry/MedSurg (Inpatient). Status is Inpatient Admission. Condition is Stable. Problem is new. Symptoms have improved. mw
[2019-12-13 20:12] LABS: Urine Bacteria 20-50 /HPF (NONE SEEN); Urine Culture Reflex Order REFLEXED; Urine Mucus 1+ /HPF (NONE SEEN)
[2019-12-13 20:13] LABS: Urine Blood 1+ (NEG); Urine Glucose NEGATIVE (NEG); Urine Protein 2+ (NEG); Urine Specific Gravity 1.015 (1.005-1.030); Urine pH 5.5 (5.0-7.0)
[2019-12-13] MEDS ORDERED: MORPHINE 2 MG/ML SYR IV PRN (20:20)
[2019-12-13] MEDS ORDERED: ONDANSETRON 4 MG/2 ML VIAL IV PRN (20:20)
[2019-12-13 23:38] VITALS: BMI 20.9
[2019-12-13] MEDS: NA CHLORIDE 0.9% 1,000 ML IV SCH (23:54)
[2019-12-14] MEDS: ACETAMINOPHEN 500 MG TAB PO PRN ×2 (05:34→19:31)
[2019-12-14 06:09] LABS: Basophils % 0.4 % (0-1.3); Hematocrit 28.9 % (39.6-49.0); Lymphocytes % 7.8 % (15.3-44.8); MPV 8.7 fL (7.6-11.3); RBC Red Blood Cell Count 3.28 M/uL (4.33-5.43)
[2019-12-14 06:16] LABS: Bilirubin Total 0.4 mg/dL (0.2-1.0); Potassium 4.2 mmol/L (3.5-5.1)
[2019-12-14] MEDS: NA CHLORIDE 0.9% 1,000 ML IV SCH ×4 (07:00→23:23)
[2019-12-14] MEDS: CEFTRIAXONE/SWI 1gm 1 GM/10 ML SYR IV SCH (09:06)
--- NOTE | 2019-12-14 09:17 | P.HP ---
Certification for Inpatient Patient admitted to: Inpatient With expected LOS: >2 Midnights Patient will require the following post-hospital care: None Practitioner: I am a practitioner with admitting privileges, knowledge of patient current condition, hospital course, and medical plan of care. Services: Services provided to patient in accordance with Admission requirements found in Title 42 Section 412.3 of the Code of Federal Regulations Patient History Date of Service: 12/13/19 Reason for admission: SEVERE SEPSIS History of Present Illness: PATIENT IS A 64-YEAR-OLD GENTLEMAN WHO CAME TO THE HOSPITAL WITH SEVERE SEPSIS. PATIENT WAS FOUND HAVE URINARY TRACT INFECTION. PROCALCITONIN WAS SIGNIFICANTLY ELEVATED. PATIENT ALSO HAS SOME CONFUSION. 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 HE HAS BEEN FEELING POORLY FOR THE LAST 24 HR AND SHE BROUGHT HIM INTO THE ER WHERE HE WAS FOUND HAVE A UTI WITH SEPTICEMIA. PATIENT BE ADMITTED TO THE HOSPITAL FOR IV ANTIBIOTIC THERAPY. PATIENT WILL NEED IV HYDRATION. PATIENT WILL BE MONITORED VERY CLOSELY AND WE WILL AWAIT CULTURE RESULTS. Allergies No Known Allergies Allergy (Verified 12/13/19 23:35) Home Medications: Aspirin Chewable [Aspirin Chewable*] 81 mg PO DAILY 12/14/19 Atorvastatin Calcium [Lipitor*] 10 mg PO BEDTIME 12/14/19 Baclofen [Lioresal*] 10 mg PO TID 12/14/19 Cholecalciferol (Vitamin D3) [Vitamin D 1000 Iu Tab*] 2 tab PO DAILY 12/14/19 Clopidogrel Bisulfate [Plavix*] 75 mg PO DAILY 12/14/19 Docusate [Colace Cap*] 100 mg PO DAILY 12/14/19 Lisinopril [Zestril] 2.5 mg PO DAILY 12/14/19 Metformin ER [Glucophage ER*] 500 mg PO BIDWM 12/14/19 Mirtazapine [Remeron*] 7.5 mg PO BEDTIME 12/14/19 - Past Medical/Surgical History -: HISTORY OF STROKE -: HISTORY OF TYPE 2 DIABETES -: HISTORY OF CAD Past Surgical History: Unable to obtain - Family History Mother Medical History: Heart disease, Hypertension - Social History Smoking Status: Current every day smoker Alcohol use: No CD- Drugs: No Review of Systems 10-point ROS is otherwise unremarkable Physical Examination - Vital Signs Temperature: 101 F Blood Pressure: 165/75 Pulse: 100 Respirations: 16 Pulse Ox (%): 94 - Physical Exam General: Alert, In no apparent distress, Confused HEENT: Atraumatic, PERRLA, Mucous membr. moist/pink, EOMI, Sclerae nonicteric Neck: Supple, 2+ carotid pulse no bruit, No LAD, Without JVD or thyroid abnormality Respiratory: Clear to auscultation bilaterally, Normal air movement Cardiovascular: Regular rate/rhythm, Normal S1 S2, No murmurs Gastrointestinal: Normal bowel sounds, Soft and benign, Non-distended, No tenderness Musculoskeletal: No clubbing, No swelling, No tenderness Integumentary: No rashes Neurological: Normal gait, Normal speech, Normal tone, Sensation intact, Cranial nerves 3-12 intact, Normal affect, Abnormal strength (RIGHT SIDE STRENGTH IS DIMINISHED WHICH IS POOR OUT OF 5) Lymphatics: No axilla or inguinal lymphadenopathy - Studies Laboratory Data (last 24 hrs) 12/13/19 17:12: PT 14.0 H, INR 1.19, APTT 28.3 12/13/19 17:12: WBC 11.2 H, Hgb 8.6 L, Hct 26.3 L, Plt Count 435 H 12/13/19 17:12: Sodium 138, Potassium 3.9, BUN 23 H, Creatinine 1.20, Glucose 162 H, Total Bilirubin 0.4, AST 57 H, ALT 39, Alkaline Phosphatase 116, Amylase 80, Lipase 271 Microbiology Data (last 24 hrs): 12/13/19 17:34 Nasopharnyx Coronavirus COVID-19 PCR - Final 12/13/19 17:34 Nasopharnyx Influenza Type A Antigen Screen - Final 12/13/19 17:34 Nasopharnyx Influenza Type B Antigen Screen - Final Assessment & Plan - Problems (Diagnosis) (1) Acute lower UTI Current Visit: Yes Status: Acute (2) Severe sepsis Current Visit: Yes Status: Acute (3) History of stroke Current Visit: Yes Status: Acute - Plan PLAN: 1. IV ANTIBIOTICS 2. IV HYDRATION 3. PHYSICAL THERAPY EVALUATION 4. REPEAT PROCALCITONIN LEVEL 5. AWAIT CULTURE RESULTS 6. MONITOR FOR ORGAN FAILURE 7. NEUROLOGICALLY PATIENT IS CONFUSED AND WILL MONITOR HIM CLOSELY 8. GI AND DVT PROPHYLAXIS Discharge Plan: Home Plan to discharge in: Greater than 2 days - Advance Directives Does patient have a Living Will: No Does patient have a Durable POA for Healthcare: No - Code Status/Comfort Care Code Status Assessed: Yes Code Status: Full Code Critical Care: No Time Spent Managing PTS Care (In Minutes): 45
--- NOTE | 2019-12-14 09:20 | P.PN ---
Subjective Date of Service: 12/14/19 PATIENT REMAINS CHI SLIGHTLY CONFUSED. NEUROLOGICALLY HE IS DOING BETTER. HE HAS HISTORY OF STROKE. WILL GET PHYSICAL THERAPY EVALUATION TODAY. POSSIBLE DISCHARGE HOME OVER THE NEXT 48 HRS IF PATIENT CONTINUES TO IMPROVE Review of Systems 10-point ROS is otherwise unremarkable Physical Examination - Vital Signs Temperature: 101 F Blood Pressure: 165/75 Pulse: 100 Respirations: 16 Pulse Ox (%): 94 - Physical Exam General: Alert, In no apparent distress, Oriented x3 Respiratory: Clear to auscultation bilaterally, Normal air movement Cardiovascular: Regular rate/rhythm, Normal S1 S2, No murmurs Gastrointestinal: Normal bowel sounds, Hypoactive, Soft and benign, Non- distended, No tenderness Musculoskeletal: No clubbing, No swelling, No tenderness Integumentary: No rashes - Studies Laboratory Data (last 24 hrs) 12/13/19 17:12: PT 14.0 H, INR 1.19, APTT 28.3 12/13/19 17:12: WBC 11.2 H, Hgb 8.6 L, Hct 26.3 L, Plt Count 435 H 12/13/19 17:12: Sodium 138, Potassium 3.9, BUN 23 H, Creatinine 1.20, Glucose 162 H, Total Bilirubin 0.4, AST 57 H, ALT 39, Alkaline Phosphatase 116, Amylase 80, Lipase 271 Microbiology Data (last 24 hrs): 12/13/19 17:34 Nasopharnyx Coronavirus COVID-19 PCR - Final 12/13/19 17:34 Nasopharnyx Influenza Type A Antigen Screen - Final 12/13/19 17:34 Nasopharnyx Influenza Type B Antigen Screen - Final Medications List Reviewed: Yes Assessment & Plan - Problems (Diagnosis) (1) Acute lower UTI Current Visit: Yes Status: Acute (2) Severe sepsis Current Visit: Yes Status: Acute (3) History of stroke Current Visit: Yes Status: Acute - Plan PLAN: CONTINUE WITH CURRENT PLAN OF CARE MENTIONED BELOW: 1. IV ANTIBIOTICS 2. IV HYDRATION 3. PHYSICAL THERAPY EVALUATION 4. REPEAT PROCALCITONIN LEVEL 5. AWAIT CULTURE RESULTS 6. MONITOR FOR ORGAN FAILURE 7. NEUROLOGICALLY PATIENT IS CONFUSED AND WILL MONITOR HIM CLOSELY 8. GI AND DVT PROPHYLAXIS Discharge Plan: Home Plan to discharge in: 48 Hours - Advance Directives Does patient have a Living Will: No Does patient have a Durable POA for Healthcare: No - Code Status/Comfort Care Code Status: Full Code Critical Care: No Time Spent Managing PTS Care (In Minutes): 30
--- NOTE | 2019-12-14 15:38 | EKG ---
Test Date: 2019-12-13 Test Time: 19:21:50 Philosophy Instructor: MEASUREMENT RESULTS: Intervals: Rate: 77 WY: 132 QRSD: 102 QT: 414 QTc: 468 Pinole: P: 63 WY: 132 QRS: -38 T: 27 INTERPRETIVE STATEMENTS: Normal sinus rhythm Left axis deviation Incomplete right bundle branch block Minimal voltage criteria for LVH, may be normal variant Abnormal ECG Compared to ECG 06/16/2018 20:45:45 Left-axis deviation now present Incomplete right bundle-branch block now present Left ventricular hypertrophy now present Right bundle-branch block no longer present Left anterior fascicular block no longer present Bifascicular block no longer present Electronically Signed On 12-14-19 15:35:48 CDT by Otoniel Barrett
[2019-12-15] MEDS: Levofloxacin500mg IV 500 MG/100 ML BAG IV SCH (01:22)
--- NOTE | 2019-12-15 02:27 | P.PN ---
Subjective Date of Service: 12/15/19 patient remains febrile with temp of a 101. Clinically does appear to be doing better. He did work with physical therapy. Patient became lightheaded while working with physical therapy. Will probably arrange for him to get home health at the time of discharge. At this time will continue with IV antibiotics and IV hydration. Await blood culture and urine culture results. Hopefully if he continues to improve but remains afebrile we can discharge him in the next 24 hr. Review of Systems 10-point ROS is otherwise unremarkable Physical Examination - Vital Signs Temperature: 101 F Blood Pressure: 165/75 Pulse: 100 Respirations: 16 Pulse Ox (%): 94 - Physical Exam General: Alert, In no apparent distress, Oriented x2 Respiratory: Clear to auscultation bilaterally, Normal air movement Cardiovascular: Regular rate/rhythm, Normal S1 S2, No murmurs Gastrointestinal: Normal bowel sounds, Soft and benign, Non-distended, No tenderness Musculoskeletal: No clubbing, No swelling, No tenderness Neurological: Sensation intact, Cranial nerves 3-12 intact, Abnormal gait, Abnormal speech, Abnormal strength, Abnormal tone - Studies Medications List Reviewed: Yes Assessment & Plan - Problems (Diagnosis) (1) Acute lower UTI Current Visit: Yes Status: Acute (2) Severe sepsis Current Visit: Yes Status: Acute (3) History of stroke Current Visit: Yes Status: Acute - Plan PLAN: CONTINUE WITH CURRENT PLAN OF CARE MENTIONED BELOW: 1. CONTINUE WITH IV ANTIBIOTICS; PATIENT REMAINS FEBRILE WITH TEMP OF 101 2. CONTINUE WITH IV HYDRATION 3. PHYSICAL THERAPY EVALUATION APPRECIATED 4. REPEAT PROCALCITONIN LEVEL IN THE MORNING 5. AWAIT CULTURE RESULTS 6. MONITOR FOR ORGAN FAILURE; RENAL FUNCTION AND LIVER FUNCTION LOOKS STABLE 7. NEUROLOGICALLY PATIENT IS CONFUSED AND WILL MONITOR HIM CLOSELY; IS IMPROVING ALTHOUGH HE IS STILL APHASIC. CONTINUE WITH CURRENT PLAN OF CARE 8. GI AND DVT PROPHYLAXIS Discharge Plan: Home Plan to discharge in: 48 Hours - Advance Directives Does patient have a Living Will: No Does patient have a Durable POA for Healthcare: No - Code Status/Comfort Care Code Status: Full Code Critical Care: No Time Spent Managing PTS Care (In Minutes): 30
[2019-12-15] MEDS: NA CHLORIDE 0.9% 1,000 ML IV SCH ×5 (03:00→21:50)
[2019-12-15 06:23] LABS: Absolute Lymphocytes (CBC) 1.5 K/uL (0.7-4.9); Hematocrit 25.8 % (39.6-49.0); Lymphocytes % 12.8 % (15.3-44.8); MPV 8.4 fL (7.6-11.3); RBC Red Blood Cell Count 2.96 M/uL (4.33-5.43)
[2019-12-15 06:34] LABS: ALT/SGPT 34 U/L (12-78); AST/SGOT 60 U/L (15-37); Albumin 1.7 g/dL (3.4-5.0); Alkaline Phosphatase 104 U/L (45-117); BUN Blood Urea Nitrogen 15 mg/dL (7-18); Bicarbonate 23 mmol/L (21-32); Bilirubin Total 0.4 mg/dL (0.2-1.0); Glucose Level 109 mg/dL (74-106); Magnesium 1.8 mg/dL (1.8-2.4); Phosphorus 2.9 mg/dL (2.5-4.9); Potassium 3.9 mmol/L (3.5-5.1); Protein, Total 7.2 g/dL (6.4-8.2); Sodium Level 141 mmol/L (136-145)
[2019-12-15] MEDS: CEFTRIAXONE/SWI 1gm 1 GM/10 ML SYR IV SCH (10:07)
[2019-12-15] MEDS: VITAMIN D 1000 UNIT TAB PO SCH (10:07)
[2019-12-15] MEDS: DOCUSATE NA 100 MG CAP PO SCH ×2 (10:07→21:03)
[2019-12-15] MEDS: ASPIRIN 81 MG CHEWABLE TABLET PO SCH (10:08)
[2019-12-15] MEDS: METFORMIN ER 500 MG TAB PO SCH ×2 (10:08→16:24)
[2019-12-15] MEDS: CLOPIDOGREL 75 MG TABLET PO SCH (10:08)
[2019-12-15] MEDS: lisinopriL 5 MG TAB PO SCH (10:08)
[2019-12-15] MEDS: BACLOFEN 10 MG TAB PO SCH ×3 (10:08→21:02)
[2019-12-15] MEDS: ENSURE HIGH PROTEIN 237 ML CAN PO SCH ×3 (10:09→21:05)
[2019-12-15] MEDS ORDERED: MIRTAZAPINE 15 MG TAB PO SCH (21:00)
[2019-12-15] MEDS ORDERED: ATORVASTATIN 10 MG TAB PO SCH (21:00)
[2019-12-15 22:55] VITALS: O2SAT 96
[2019-12-15] MEDS ORDERED: ACETAMINOPHEN 500 MG TAB PO ONE (23:50)
[2019-12-16] MEDS: Levofloxacin500mg IV 500 MG/100 ML BAG IV SCH (00:01)
[2019-12-16] MEDS: CLOPIDOGREL 75 MG TABLET PO SCH (08:13)
[2019-12-16] MEDS: BACLOFEN 10 MG TAB PO SCH ×2 (08:13→14:00)
[2019-12-16] MEDS: METFORMIN ER 500 MG TAB PO SCH (08:13)
[2019-12-16] MEDS: lisinopriL 5 MG TAB PO SCH (08:13)
[2019-12-16] MEDS: ASPIRIN 81 MG CHEWABLE TABLET PO SCH (08:13)
[2019-12-16] MEDS: DOCUSATE NA 100 MG CAP PO SCH (08:13)
[2019-12-16] MEDS: CEFTRIAXONE/SWI 1gm 1 GM/10 ML SYR IV SCH (08:14)
[2019-12-16] MEDS: VITAMIN D 1000 UNIT TAB PO SCH (08:15)
[2019-12-16] MEDS: NA CHLORIDE 0.9% 1,000 ML IV SCH (08:15)
[2019-12-16 08:16] VITALS: BP 155/78
[2019-12-16] MEDS: ENSURE HIGH PROTEIN 237 ML CAN PO SCH ×2 (08:16→14:00)
--- NOTE | 2019-12-16 09:53 | P.DS ---
Discharge Date: 12/16/19 Disposition: ROUTINE DISCHARGE Discharge Condition: GOOD Reason for Admission: SEVERE SEPSIS - Problems (1) Acute lower UTI Status: Acute (2) Severe sepsis Status: Acute (3) History of stroke Status: Acute Brief History of Present Illness: PATIENT IS A 64-YEAR-OLD GENTLEMAN WHO CAME TO THE HOSPITAL WITH SEVERE SEPSIS. PATIENT WAS FOUND HAVE URINARY TRACT INFECTION. PROCALCITONIN WAS SIGNIFICANTLY ELEVATED. PATIENT ALSO HAS SOME CONFUSION. 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 HE HAS BEEN FEELING POORLY FOR THE LAST 24 HR AND SHE BROUGHT HIM INTO THE ER WHERE HE WAS FOUND HAVE A UTI WITH SEPTICEMIA. PATIENT BE ADMITTED TO THE HOSPITAL FOR IV ANTIBIOTIC THERAPY. PATIENT WILL NEED IV HYDRATION. PATIENT WILL BE MONITORED VERY CLOSELY AND WE WILL AWAIT CULTURE RESULTS. Hospital Course: Patient's blood cultures revealed E coli which was sensitive to Levaquin. Patient has been afebrile for the last 24 hr. Patient has been on appropriate antibiotics. At this time, patient is stable for discharge with outpatient follow-up. As outpatient full will with PCP and patient needs home health for physical therapy and [facility] therapy. Vital Signs/Physical Exam: Temp Pulse Resp BP Pulse Ox 96.6 F L 75 18 155/78 H 98 12/16/19 04:00 12/16/19 08:13 12/16/19 04:00 12/16/19 08:13 12/16/19 04:00 General: Alert, In no apparent distress, Oriented x3 Laboratory Data at Discharge: WBC 11.7 K/uL (4.3-10.9) H 12/15/19 05:54 Hgb 8.2 g/dL (13.6-17.9) L 12/15/19 05:54 Hct 25.8 % (39.6-49.0) L 12/15/19 05:54 Plt Count 461 K/uL (152-406) H 12/15/19 05:54 PT 14.0 SECONDS (9.5-12.5) H 12/13/19 17:12 INR 1.19 12/13/19 17:12 APTT 28.3 SECONDS (24.3-36.9) 12/13/19 17:12 Sodium 141 mmol/L (136-145) 12/15/19 05:54 Potassium 3.9 mmol/L (3.5-5.1) 12/15/19 05:54 BUN 15 mg/dL (7-18) 12/15/19 05:54 Creatinine 0.86 mg/dL (0.55-1.3) 12/15/19 05:54 Glucose 109 mg/dL (74-106) H 12/15/19 05:54 Phosphorus 2.9 mg/dL (2.5-4.9) 12/15/19 05:54 Magnesium 1.8 mg/dL (1.8-2.4) 12/15/19 05:54 Total Bilirubin 0.4 mg/dL (0.2-1.0) 12/15/19 05:54 AST 60 U/L (15-37) H 12/15/19 05:54 ALT 34 U/L (12-78) 12/15/19 05:54 Alkaline Phosphatase 104 U/L (45-117) 12/15/19 05:54 Amylase 80 U/L (25-115) 12/13/19 17:12 Lipase 271 U/L (73-393) 12/13/19 17:12 Home Medications: Aspirin Chewable [Aspirin Chewable*] 81 mg PO DAILY 12/14/19 Atorvastatin Calcium [Lipitor*] 10 mg PO BEDTIME 12/14/19 Baclofen [Lioresal*] 10 mg PO TID 12/14/19 Cholecalciferol (Vitamin D3) [Vitamin D 1000 Iu Tab*] 2 tab PO DAILY 12/14/19 Clopidogrel Bisulfate [Plavix*] 75 mg PO DAILY 12/14/19 Docusate [Colace Cap*] 100 mg PO DAILY 12/14/19 Lisinopril [Zestril] 2.5 mg PO DAILY 12/14/19 Metformin ER [Glucophage ER*] 500 mg PO BIDWM 12/14/19 Mirtazapine [Remeron*] 7.5 mg PO BEDTIME 12/14/19 levoFLOXacin [Levaquin] 500 mg PO DAILY 10 Days #10 tab 12/16/19 New Medications: levoFLOXacin [Levaquin] 500 mg PO DAILY 10 Days #10 tab Patient Discharge Instructions: OK TO DC IV AND DC HOME. FOLLOW-UP WITH PRIMARY CARE PROVIDER IN 1-2 WEEKS. FOLLOW-UP WITH CARDIOLOGY IN 1-2 WEEKS. RETURN TO THE ER IF. CALL or TEXT DR. JACKSON AT [phone] IF ANY QUESTIONS REGARDING HOSPITAL STAY. PLEASE CALL THE FLOOR AT [phone] IF ANY MEDICATION OR NURSING QUESTIONS. Diet: AHA Time spent managing pt's care (in minutes): 25
[2019-12-16 10:09] VITALS: TEMP 97.3
== END 2019-12-16 14:57 | disposition home or self-care (01) | DRG 872 ==
LOC: ER 16:40 → ERHOLD 20:26 → 4TH 21:14 → 2ND 12-14 03:32
PROVIDERS: ADMIT Hospitalist; ATTEND Hospitalist
DX: A41.9 Sepsis, unspecified organism (principal); N39.0 Urinary tract infection, site not specified; I69.351 Hemiplegia and hemiparesis following cerebral infarction affecting right dominant side; R65.20 Severe sepsis without septic shock; I69.320 Aphasia following cerebral infarction; Z79.82 Long term (current) use of aspirin; Z79.02 Long term (current) use of antithrombotics/antiplatelets; Z20.828 Contact with and (suspected) exposure to other viral communicable diseases; Z79.84 Long term (current) use of oral hypoglycemic drugs; Z79.899 Other long term (current) drug therapy; E11.9 Type 2 diabetes mellitus without complications; I25.10 Atherosclerotic heart disease of native coronary artery without angina pectoris; F17.200 Nicotine dependence, unspecified, uncomplicated; B96.20 Unspecified Escherichia coli [E. coli] as the cause of diseases classified elsewhere
CPT/HCPCS: 36415; 71045; 74177; 80048; 80053; 80076; 81003; 81015; 82150; 82550; 82553; 82947; 83605; 83690; 83735; 84100; 84145; 84484; 85025; 85610; 85730; 87040; 87077; 87086; 87088; 87186; 87205; 87804; 93005; 96365; 96366; 96375; 97112; 97161; 97530; 99285; J0692; J0696; J2405; J7030; Q9967; U0002